=== PATIENT | male | born 1995 | race Two or more races ===

== ENCOUNTER 2024-06-11 20:12 | Emergency (ER) | payer OTHER ==
[~2024-06-11] VITALS: Ht 167.6 cm; Wt 75.0 kg
[2024-06-11 20:24] VITALS: BP 134/73; PULSE 88; RESP 14; TEMP 98.9; O2SAT 99
== END 2024-06-11 22:32 ==
LOC: EMS 20:12
DX: T18.9XXA Foreign body of alimentary tract, part unspecified, initial encounter (principal); W44.8XXA Other foreign body entering into or through a natural orifice, initial encounter; Y93.89 Activity, other specified; Y92.89 Other specified places as the place of occurrence of the external cause; Y99.8 Other external cause status
CPT/HCPCS: 74176; 99284; Z7502